=== PATIENT | male | born 1985 | race Caucasian/White ===

== ENCOUNTER 2018-03-06 13:44 | Day surgery (SDC) | payer OTHER ==
[~2018-03-06 13:44] MED LIST: GABA300 PO; HYDACE5 PO; INS70/30I SC; INS70/30PN SC; INSDET100 SC; INSUAS7030 SC; INSULANI SC; LISI20 PO; LISI5 PO; PROM25 PO; SULTRIDS
== END 2018-03-06 22:43 | disposition home or self-care (01) ==
LOC: ATC 13:44
DX: T81.89XA Other complications of procedures, not elsewhere classified, initial encounter (principal); Z98.890 Other specified postprocedural states; L97.512 Non-pressure chronic ulcer of other part of right foot with fat layer exposed; E10.621 Type 1 diabetes mellitus with foot ulcer
CPT/HCPCS: 99214

== ENCOUNTER 2018-03-13 00:30 | Day surgery (SDC) | payer OTHER | END 2018-03-13 14:04 | disposition home or self-care (01) | LOC: ATC 00:30 | DX: T81.89XA Other complications of procedures, not elsewhere classified, initial encounter (principal); E10.621 Type 1 diabetes mellitus with foot ulcer; L97.512 Non-pressure chronic ulcer of other part of right foot with fat layer exposed; I10 Essential (primary) hypertension; E78.00 Pure hypercholesterolemia, unspecified | CPT/HCPCS: 99212 ==

== ENCOUNTER 2018-03-17 00:04 | Day surgery (SDC) | payer OTHER | END 2018-03-17 11:50 | disposition home or self-care (01) | LOC: ATC 00:04 | DX: Z48.00 Encounter for change or removal of nonsurgical wound dressing (principal); E10.621 Type 1 diabetes mellitus with foot ulcer; L97.512 Non-pressure chronic ulcer of other part of right foot with fat layer exposed; T81.89XA Other complications of procedures, not elsewhere classified, initial encounter; Z98.890 Other specified postprocedural states; I10 Essential (primary) hypertension | CPT/HCPCS: 99211 ==

== ENCOUNTER 2018-03-20 00:18 | Day surgery (SDC) | payer OTHER | END 2018-03-20 14:10 | disposition home or self-care (01) | LOC: ATC 00:18 | DX: E10.621 Type 1 diabetes mellitus with foot ulcer (principal); L97.512 Non-pressure chronic ulcer of other part of right foot with fat layer exposed; T81.89XD Other complications of procedures, not elsewhere classified, subsequent encounter | CPT/HCPCS: 99212 ==

== ENCOUNTER 2018-03-23 00:19 | Day surgery (SDC) | payer OTHER | END 2018-03-23 15:03 | disposition home or self-care (01) | LOC: ATC 00:19 | DX: T81.89XA Other complications of procedures, not elsewhere classified, initial encounter (principal); Z98.890 Other specified postprocedural states; E11.621 Type 2 diabetes mellitus with foot ulcer; L97.512 Non-pressure chronic ulcer of other part of right foot with fat layer exposed | CPT/HCPCS: 99211 ==

== ENCOUNTER 2018-03-25 08:08 | Day surgery (SDC) | payer OTHER | END 2018-03-25 15:40 | disposition home or self-care (01) | LOC: ATC 08:08 | DX: T81.89XA Other complications of procedures, not elsewhere classified, initial encounter (principal); E10.621 Type 1 diabetes mellitus with foot ulcer; L97.512 Non-pressure chronic ulcer of other part of right foot with fat layer exposed | CPT/HCPCS: 99211 ==

== ENCOUNTER 2018-03-27 09:12 | Day surgery (SDC) | payer OTHER ==
[2018-03-27] MEDS ORDERED: ASPI81CH PO (11:44)
== END 2018-03-27 10:20 | disposition home or self-care (01) ==
LOC: ATC 09:12
DX: T81.89XA Other complications of procedures, not elsewhere classified, initial encounter (principal); E10.621 Type 1 diabetes mellitus with foot ulcer; L97.512 Non-pressure chronic ulcer of other part of right foot with fat layer exposed; Z98.890 Other specified postprocedural states; E10.40 Type 1 diabetes mellitus with diabetic neuropathy, unspecified; I10 Essential (primary) hypertension; Z79.4 Long term (current) use of insulin; F17.210 Nicotine dependence, cigarettes, uncomplicated
CPT/HCPCS: 99212

== ENCOUNTER 2018-03-30 00:19 | Day surgery (SDC) | payer OTHER ==
[~2018-03-30 00:19] MED LIST changes: +ASPI81CH PO
== END 2018-03-30 22:45 | disposition home or self-care (01) ==
LOC: WOUND 00:19
DX: T81.89XA Other complications of procedures, not elsewhere classified, initial encounter (principal); E10.621 Type 1 diabetes mellitus with foot ulcer; L97.512 Non-pressure chronic ulcer of other part of right foot with fat layer exposed; I10 Essential (primary) hypertension; J44.9 Chronic obstructive pulmonary disease, unspecified; G47.30 Sleep apnea, unspecified
CPT/HCPCS: G0463

== ENCOUNTER 2018-04-01 07:48 | Day surgery (SDC) | payer OTHER | END 2018-04-01 22:47 | disposition home or self-care (01) | LOC: WOUND 07:48 | DX: T81.89XA Other complications of procedures, not elsewhere classified, initial encounter (principal); E10.622 Type 1 diabetes mellitus with other skin ulcer; L97.512 Non-pressure chronic ulcer of other part of right foot with fat layer exposed; L97.812 Non-pressure chronic ulcer of other part of right lower leg with fat layer exposed; I10 Essential (primary) hypertension ==

== ENCOUNTER 2018-04-03 00:18 | Day surgery (SDC) | payer OTHER | END 2018-04-03 22:37 | disposition home or self-care (01) | LOC: WOUND 00:18 | DX: T81.89XA Other complications of procedures, not elsewhere classified, initial encounter (principal); I10 Essential (primary) hypertension; E10.622 Type 1 diabetes mellitus with other skin ulcer; L97.812 Non-pressure chronic ulcer of other part of right lower leg with fat layer exposed ==

== ENCOUNTER 2018-04-06 08:26 | Day surgery (SDC) | payer OTHER | END 2018-04-06 22:50 | disposition home or self-care (01) | LOC: WOUND 08:26 | DX: E11.622 Type 2 diabetes mellitus with other skin ulcer (principal); L97.812 Non-pressure chronic ulcer of other part of right lower leg with fat layer exposed; E11.621 Type 2 diabetes mellitus with foot ulcer; L97.512 Non-pressure chronic ulcer of other part of right foot with fat layer exposed; Z98.890 Other specified postprocedural states; T81.89XA Other complications of procedures, not elsewhere classified, initial encounter; I10 Essential (primary) hypertension; Z79.4 Long term (current) use of insulin ==

== ENCOUNTER 2018-04-08 00:10 | Day surgery (SDC) | payer OTHER | END 2018-04-08 22:43 | disposition home or self-care (01) | LOC: WOUND 00:10 | DX: Z48.01 Encounter for change or removal of surgical wound dressing (principal); L97.812 Non-pressure chronic ulcer of other part of right lower leg with fat layer exposed; L97.512 Non-pressure chronic ulcer of other part of right foot with fat layer exposed; Z98.890 Other specified postprocedural states; I10 Essential (primary) hypertension | CPT/HCPCS: G0463 ==

== ENCOUNTER 2018-05-04 07:53 | Day surgery (SDC) | payer OTHER | END 2018-05-04 23:03 | disposition home or self-care (01) | LOC: WOUND 07:53 | DX: E10.621 Type 1 diabetes mellitus with foot ulcer (principal); L97.512 Non-pressure chronic ulcer of other part of right foot with fat layer exposed; E10.622 Type 1 diabetes mellitus with other skin ulcer; L97.312 Non-pressure chronic ulcer of right ankle with fat layer exposed; I10 Essential (primary) hypertension; E10.65 Type 1 diabetes mellitus with hyperglycemia; Z98.890 Other specified postprocedural states ==

== ENCOUNTER 2018-05-06 00:08 | Day surgery (SDC) | payer OTHER | END 2018-05-06 22:50 | disposition home or self-care (01) | LOC: WOUND 00:08 | DX: L97.812 Non-pressure chronic ulcer of other part of right lower leg with fat layer exposed (principal); L97.512 Non-pressure chronic ulcer of other part of right foot with fat layer exposed; Z98.890 Other specified postprocedural states; I10 Essential (primary) hypertension; E10.621 Type 1 diabetes mellitus with foot ulcer; E10.65 Type 1 diabetes mellitus with hyperglycemia ==

== ENCOUNTER → 2018-06-01 | Outpatient (CLI) | payer OTHER ==
[2018-06-01 13:03] LABS: Bacteria Few /hpf; Squamous Epithelial Cells Rare /hpf (Few); White Blood Cells, Urine 0-2 /hpf (0-5)
[2018-06-01 13:25] LABS: Protein, Urine Random 18.4 mg/dL (0.0-11.9)
== END | disposition home or self-care (01) ==
LOC: LAB 11:30 → LAB SHORT 11:30
PROVIDERS: Internal Medicine
DX: R80.9 Proteinuria, unspecified (principal)
CPT/HCPCS: 81015; 82570; 84156

== ENCOUNTER 2018-06-22 01:37 | Day surgery (SDC) | payer OTHER | END 2018-06-22 22:37 | disposition home or self-care (01) | LOC: WOUND 01:37 | DX: L97.312 Non-pressure chronic ulcer of right ankle with fat layer exposed (principal); Z98.890 Other specified postprocedural states; I10 Essential (primary) hypertension; E10.65 Type 1 diabetes mellitus with hyperglycemia ==

== ENCOUNTER 2018-06-25 00:20 | Day surgery (SDC) | payer OTHER | END 2018-06-25 22:45 | disposition home or self-care (01) | LOC: WOUND 00:20 | DX: L97.812 Non-pressure chronic ulcer of other part of right lower leg with fat layer exposed (principal); Z98.890 Other specified postprocedural states; I10 Essential (primary) hypertension; E10.65 Type 1 diabetes mellitus with hyperglycemia ==

== ENCOUNTER 2018-06-29 00:15 | Day surgery (SDC) | payer OTHER | END 2018-06-29 22:43 | disposition home or self-care (01) | LOC: WOUND 00:15 | DX: L97.812 Non-pressure chronic ulcer of other part of right lower leg with fat layer exposed (principal); E10.65 Type 1 diabetes mellitus with hyperglycemia; I10 Essential (primary) hypertension; Z98.890 Other specified postprocedural states ==

== ENCOUNTER 2018-07-02 13:04 | Day surgery (SDC) | payer OTHER | END 2018-07-02 23:03 | disposition home or self-care (01) | LOC: WOUND 13:04 | DX: L97.812 Non-pressure chronic ulcer of other part of right lower leg with fat layer exposed (principal); I10 Essential (primary) hypertension; E10.65 Type 1 diabetes mellitus with hyperglycemia; Z98.890 Other specified postprocedural states ==

== ENCOUNTER 2018-07-06 08:45 | Day surgery (SDC) | payer OTHER | END 2018-07-06 22:36 | disposition home or self-care (01) | LOC: WOUND 08:45 | DX: L97.812 Non-pressure chronic ulcer of other part of right lower leg with fat layer exposed (principal); I10 Essential (primary) hypertension; E10.65 Type 1 diabetes mellitus with hyperglycemia; Z98.890 Other specified postprocedural states ==

== ENCOUNTER 2018-07-09 13:20 | Day surgery (SDC) | payer OTHER | END 2018-07-09 22:45 | disposition home or self-care (01) | LOC: WOUND 13:20 | DX: L97.812 Non-pressure chronic ulcer of other part of right lower leg with fat layer exposed (principal); I10 Essential (primary) hypertension; E10.65 Type 1 diabetes mellitus with hyperglycemia; Z98.890 Other specified postprocedural states ==

== ENCOUNTER 2018-07-13 08:45 | Day surgery (SDC) | payer OTHER | END 2018-07-13 22:39 | disposition home or self-care (01) | LOC: WOUND 08:45 | DX: L97.812 Non-pressure chronic ulcer of other part of right lower leg with fat layer exposed (principal); Z98.890 Other specified postprocedural states; I10 Essential (primary) hypertension; E10.65 Type 1 diabetes mellitus with hyperglycemia ==

== ENCOUNTER 2018-07-16 13:30 | Day surgery (SDC) | payer OTHER | END 2018-07-16 22:47 | disposition home or self-care (01) | LOC: WOUND 13:30 | DX: L97.812 Non-pressure chronic ulcer of other part of right lower leg with fat layer exposed (principal); I10 Essential (primary) hypertension; E10.65 Type 1 diabetes mellitus with hyperglycemia; Z98.890 Other specified postprocedural states | CPT/HCPCS: G0463 ==

== ENCOUNTER 2018-07-20 08:27 | Day surgery (SDC) | payer OTHER | END 2018-07-20 23:00 | disposition home or self-care (01) | LOC: WOUND 08:27 | DX: L97.812 Non-pressure chronic ulcer of other part of right lower leg with fat layer exposed (principal); I10 Essential (primary) hypertension; E10.65 Type 1 diabetes mellitus with hyperglycemia; Z98.890 Other specified postprocedural states ==

== ENCOUNTER 2018-07-23 00:20 | Day surgery (SDC) | payer OTHER | END 2018-07-23 23:58 | disposition home or self-care (01) | LOC: WOUND 00:20 | PROC: 2W1QX6Z Compression of Right Lower Leg using Pressure Dressing (ICD-10-PCS; principal; 2018-07-23) | DX: E10.622 Type 1 diabetes mellitus with other skin ulcer (principal); L97.319 Non-pressure chronic ulcer of right ankle with unspecified severity; I10 Essential (primary) hypertension; Z98.890 Other specified postprocedural states ==

== ENCOUNTER 2018-07-27 08:35 | Day surgery (SDC) | payer OTHER | END 2018-07-27 22:41 | disposition home or self-care (01) | LOC: WOUND 08:35 | PROC: 2W1LX6Z Compression of Right Lower Extremity using Pressure Dressing (ICD-10-PCS; principal; 2018-07-27) | PROC: 0HBKXZZ Excision of Right Lower Leg Skin, External Approach (ICD-10-PCS; principal; 2018-07-27) | DX: E10.622 Type 1 diabetes mellitus with other skin ulcer (principal); L97.312 Non-pressure chronic ulcer of right ankle with fat layer exposed; I10 Essential (primary) hypertension ==

== ENCOUNTER 2018-07-30 13:30 | Day surgery (SDC) | payer OTHER | END 2018-07-30 22:51 | disposition home or self-care (01) | LOC: WOUND 13:30 | DX: L97.812 Non-pressure chronic ulcer of other part of right lower leg with fat layer exposed (principal); Z98.890 Other specified postprocedural states; I10 Essential (primary) hypertension; E10.65 Type 1 diabetes mellitus with hyperglycemia ==

== ENCOUNTER 2018-08-03 08:45 | Day surgery (SDC) | payer OTHER | END 2018-08-03 22:47 | disposition home or self-care (01) | LOC: WOUND 08:45 | DX: L97.812 Non-pressure chronic ulcer of other part of right lower leg with fat layer exposed (principal); Z98.890 Other specified postprocedural states; I10 Essential (primary) hypertension; E10.65 Type 1 diabetes mellitus with hyperglycemia ==

== ENCOUNTER 2018-08-06 13:20 | Day surgery (SDC) | payer OTHER | END 2018-08-06 23:10 | disposition home or self-care (01) | LOC: WOUND 13:20 | DX: E10.622 Type 1 diabetes mellitus with other skin ulcer (principal); L97.812 Non-pressure chronic ulcer of other part of right lower leg with fat layer exposed; I10 Essential (primary) hypertension; Z98.890 Other specified postprocedural states ==

== ENCOUNTER 2018-08-10 08:20 | Day surgery (SDC) | payer OTHER | END 2018-08-10 22:41 | disposition home or self-care (01) | LOC: WOUND 08:20 | DX: T81.89XA Other complications of procedures, not elsewhere classified, initial encounter (principal); E10.622 Type 1 diabetes mellitus with other skin ulcer; L97.312 Non-pressure chronic ulcer of right ankle with fat layer exposed; I10 Essential (primary) hypertension; E10.65 Type 1 diabetes mellitus with hyperglycemia; B95.62 Methicillin resistant Staphylococcus aureus infection as the cause of diseases classified elsewhere ==

== ENCOUNTER 2018-08-13 13:20 | Day surgery (SDC) | payer OTHER | END 2018-08-13 22:56 | disposition home or self-care (01) | LOC: WOUND 13:20 | PROC: 2W1QX7Z Compression of Right Lower Leg using Intermittent Pressure Device (ICD-10-PCS; principal; 2018-08-13) | DX: E10.622 Type 1 diabetes mellitus with other skin ulcer (principal); L97.812 Non-pressure chronic ulcer of other part of right lower leg with fat layer exposed; I10 Essential (primary) hypertension; Z98.890 Other specified postprocedural states ==

== ENCOUNTER 2018-08-17 08:15 | Day surgery (SDC) | payer OTHER | END 2018-08-17 22:39 | disposition home or self-care (01) | LOC: WOUND 08:15 | DX: T81.89XA Other complications of procedures, not elsewhere classified, initial encounter (principal); E10.622 Type 1 diabetes mellitus with other skin ulcer; L97.312 Non-pressure chronic ulcer of right ankle with fat layer exposed; I10 Essential (primary) hypertension; E10.65 Type 1 diabetes mellitus with hyperglycemia ==

== ENCOUNTER 2018-08-20 00:34 | Day surgery (SDC) | payer OTHER | END 2018-08-20 22:44 | disposition home or self-care (01) | LOC: WOUND 00:34 | DX: L97.812 Non-pressure chronic ulcer of other part of right lower leg with fat layer exposed (principal); Z98.890 Other specified postprocedural states; I10 Essential (primary) hypertension; E10.65 Type 1 diabetes mellitus with hyperglycemia ==

== ENCOUNTER 2018-08-24 00:26 | Day surgery (SDC) | payer OTHER | END 2018-08-24 22:59 | disposition home or self-care (01) | LOC: WOUND 00:26 | DX: T81.89XA Other complications of procedures, not elsewhere classified, initial encounter (principal); E10.622 Type 1 diabetes mellitus with other skin ulcer; L97.312 Non-pressure chronic ulcer of right ankle with fat layer exposed; S91.102A Unspecified open wound of left great toe without damage to nail, initial encounter; S91.205A Unspecified open wound of left lesser toe(s) with damage to nail, initial encounter; Z98.890 Other specified postprocedural states; I10 Essential (primary) hypertension; E10.65 Type 1 diabetes mellitus with hyperglycemia; E10.40 Type 1 diabetes mellitus with diabetic neuropathy, unspecified; Z87.891 Personal history of nicotine dependence | CPT/HCPCS: G0463 ==

== ENCOUNTER 2018-08-27 00:16 | Day surgery (SDC) | payer OTHER ==
[2018-08-27 15:45] LABS: BASOPHILS ABSOLUTE AUTO 0.03 K/mm3 (0.00-0.23); BASOPHILS PERCENT AUTO 1 % (0-2); EOSINOPHILS ABSOLUTE AUTO 0.21 K/mm3 (0.00-0.68); EOSINOPHILS PERCENT AUTO 3 % (0-6); Hematocrit 41.7 % (37.0-53.0); Hemoglobin 13.7 g/dL (13.5-17.5); IMMATURE GRAN ABSOLUTE AUTO 0.03 K/mm3 (0.00-0.10); IMMATURE GRAN PERCENT AUTO 1 % (0-1); LYMPHOCYTES PERCENT AUTO 26 % (21-46); MONOCYTES ABSOLUTE AUTO 0.41 K/mm3 (0.16-1.47); MONOCYTES PERCENT AUTO 6 % (4-13); Mean Corpuscular HGB 30.4 pg (26.0-34.0); Mean Corpuscular HGB Conc 32.9 g/dL (31.5-36.5); Mean Corpuscular Volume 93 fL (80-100); Mean Platelet Volume 9.9 fL (9.1-12.4); NEUTROPHILS ABSOLUTE AUTO 4.05 K/mm3 (1.96-9.15); NEUTROPHILS PERCENT AUTO 63 % (41-73); Platelet Count 349 K/mm3 (150-400); RDW Standard Deviation 41.5 fL (35.1-46.3); White Blood Cell Count 6.43 K/mm3 (4.00-11.30)
== END 2018-08-27 22:37 | disposition home or self-care (01) ==
LOC: WOUND 00:16
PROVIDERS: Nurse Practitioner Family
DX: L97.812 Non-pressure chronic ulcer of other part of right lower leg with fat layer exposed (principal); Z98.890 Other specified postprocedural states; R23.4 Changes in skin texture; E10.65 Type 1 diabetes mellitus with hyperglycemia; I10 Essential (primary) hypertension; Z79.01 Long term (current) use of anticoagulants
CPT/HCPCS: 36415; 83036; 85025

== ENCOUNTER 2018-09-03 13:05 | Day surgery (SDC) | payer OTHER | END 2018-09-04 13:11 | disposition home or self-care (01) | LOC: WOUND 13:05 | DX: L97.812 Non-pressure chronic ulcer of other part of right lower leg with fat layer exposed (principal); Z98.890 Other specified postprocedural states; I10 Essential (primary) hypertension; E10.65 Type 1 diabetes mellitus with hyperglycemia | CPT/HCPCS: 87070; 87147; 87205 ==

== ENCOUNTER 2018-09-14 00:25 | Day surgery (SDC) | payer OTHER | END 2018-09-14 22:50 | disposition home or self-care (01) | LOC: WOUND 00:25 | DX: L97.812 Non-pressure chronic ulcer of other part of right lower leg with fat layer exposed (principal); E10.65 Type 1 diabetes mellitus with hyperglycemia; I10 Essential (primary) hypertension; Z98.890 Other specified postprocedural states ==

== ENCOUNTER 2018-09-21 08:09 | Day surgery (SDC) | payer OTHER | END 2018-09-21 22:40 | disposition home or self-care (01) | LOC: WOUND 08:09 | DX: T81.89XA Other complications of procedures, not elsewhere classified, initial encounter (principal); E10.622 Type 1 diabetes mellitus with other skin ulcer; L97.812 Non-pressure chronic ulcer of other part of right lower leg with fat layer exposed; L97.522 Non-pressure chronic ulcer of other part of left foot with fat layer exposed; E10.40 Type 1 diabetes mellitus with diabetic neuropathy, unspecified; I10 Essential (primary) hypertension; Z98.890 Other specified postprocedural states ==

== ENCOUNTER 2018-09-28 08:45 | Day surgery (SDC) | payer OTHER | END 2018-09-28 22:47 | disposition home or self-care (01) | LOC: WOUND 08:45 | DX: E11.621 Type 2 diabetes mellitus with foot ulcer (principal); E11.622 Type 2 diabetes mellitus with other skin ulcer; L97.312 Non-pressure chronic ulcer of right ankle with fat layer exposed; L97.522 Non-pressure chronic ulcer of other part of left foot with fat layer exposed; I10 Essential (primary) hypertension; Z98.890 Other specified postprocedural states ==

== ENCOUNTER 2018-10-05 00:10 | Day surgery (SDC) | payer OTHER | END 2018-10-05 23:05 | disposition home or self-care (01) | LOC: WOUND 00:10 | DX: E10.621 Type 1 diabetes mellitus with foot ulcer (principal); I87.2 Venous insufficiency (chronic) (peripheral); L97.312 Non-pressure chronic ulcer of right ankle with fat layer exposed; L97.522 Non-pressure chronic ulcer of other part of left foot with fat layer exposed; E10.40 Type 1 diabetes mellitus with diabetic neuropathy, unspecified; I10 Essential (primary) hypertension; Z98.890 Other specified postprocedural states ==

== ENCOUNTER 2018-10-12 00:16 | Day surgery (SDC) | payer OTHER | END 2018-10-12 22:45 | disposition home or self-care (01) | LOC: WOUND 00:16 | DX: E10.622 Type 1 diabetes mellitus with other skin ulcer (principal); L97.812 Non-pressure chronic ulcer of other part of right lower leg with fat layer exposed; L97.522 Non-pressure chronic ulcer of other part of left foot with fat layer exposed; E10.40 Type 1 diabetes mellitus with diabetic neuropathy, unspecified ==

== ENCOUNTER 2018-10-19 08:47 | Day surgery (SDC) | payer OTHER | END 2018-10-19 22:45 | disposition home or self-care (01) | LOC: WOUND 08:47 | DX: T81.89XA Other complications of procedures, not elsewhere classified, initial encounter (principal); I87.2 Venous insufficiency (chronic) (peripheral); E10.622 Type 1 diabetes mellitus with other skin ulcer; L97.812 Non-pressure chronic ulcer of other part of right lower leg with fat layer exposed; L97.822 Non-pressure chronic ulcer of other part of left lower leg with fat layer exposed; E10.621 Type 1 diabetes mellitus with foot ulcer; L97.522 Non-pressure chronic ulcer of other part of left foot with fat layer exposed; I10 Essential (primary) hypertension; E10.65 Type 1 diabetes mellitus with hyperglycemia; E10.10 Type 1 diabetes mellitus with ketoacidosis without coma | CPT/HCPCS: G0463 ==

== ENCOUNTER 2018-10-26 08:44 | Day surgery (SDC) | payer OTHER | END 2018-10-26 22:47 | disposition home or self-care (01) | LOC: WOUND 08:44 | DX: T87.89 Other complications of amputation stump (principal); I87.2 Venous insufficiency (chronic) (peripheral); E10.622 Type 1 diabetes mellitus with other skin ulcer; L97.812 Non-pressure chronic ulcer of other part of right lower leg with fat layer exposed; L97.822 Non-pressure chronic ulcer of other part of left lower leg with fat layer exposed; E10.621 Type 1 diabetes mellitus with foot ulcer; L97.522 Non-pressure chronic ulcer of other part of left foot with fat layer exposed; E10.65 Type 1 diabetes mellitus with hyperglycemia ==

== ENCOUNTER 2018-11-02 08:44 | Day surgery (SDC) | payer OTHER | END 2018-11-02 23:03 | disposition home or self-care (01) | LOC: WOUND 08:44 | DX: E10.622 Type 1 diabetes mellitus with other skin ulcer (principal); L97.311 Non-pressure chronic ulcer of right ankle limited to breakdown of skin; L97.822 Non-pressure chronic ulcer of other part of left lower leg with fat layer exposed; L97.812 Non-pressure chronic ulcer of other part of right lower leg with fat layer exposed; I87.2 Venous insufficiency (chronic) (peripheral); E10.65 Type 1 diabetes mellitus with hyperglycemia; E10.42 Type 1 diabetes mellitus with diabetic polyneuropathy; I10 Essential (primary) hypertension ==

== ENCOUNTER 2018-11-09 08:38 | Day surgery (SDC) | payer OTHER | END 2018-11-09 22:41 | disposition home or self-care (01) | LOC: WOUND 08:38 | DX: T81.89XA Other complications of procedures, not elsewhere classified, initial encounter (principal); E10.622 Type 1 diabetes mellitus with other skin ulcer; L97.812 Non-pressure chronic ulcer of other part of right lower leg with fat layer exposed; L97.822 Non-pressure chronic ulcer of other part of left lower leg with fat layer exposed; I87.2 Venous insufficiency (chronic) (peripheral); I10 Essential (primary) hypertension; E10.65 Type 1 diabetes mellitus with hyperglycemia; E10.40 Type 1 diabetes mellitus with diabetic neuropathy, unspecified; Z98.890 Other specified postprocedural states | CPT/HCPCS: G0463 ==

== ENCOUNTER 2018-11-16 00:13 | Day surgery (SDC) | payer BC, OTHER | END 2018-11-16 22:46 | disposition home or self-care (01) | LOC: WOUND 00:13 | DX: E10.621 Type 1 diabetes mellitus with foot ulcer (principal); L97.312 Non-pressure chronic ulcer of right ankle with fat layer exposed; L97.822 Non-pressure chronic ulcer of other part of left lower leg with fat layer exposed; E10.65 Type 1 diabetes mellitus with hyperglycemia; E10.40 Type 1 diabetes mellitus with diabetic neuropathy, unspecified; I87.2 Venous insufficiency (chronic) (peripheral); I10 Essential (primary) hypertension; Z98.890 Other specified postprocedural states | CPT/HCPCS: G0463 ==

== ENCOUNTER 2018-11-23 08:30 | Day surgery (SDC) | payer BC, OTHER | END 2018-11-23 22:37 | disposition home or self-care (01) | LOC: WOUND 08:30 | DX: E10.622 Type 1 diabetes mellitus with other skin ulcer (principal); L97.312 Non-pressure chronic ulcer of right ankle with fat layer exposed; L97.822 Non-pressure chronic ulcer of other part of left lower leg with fat layer exposed; L97.812 Non-pressure chronic ulcer of other part of right lower leg with fat layer exposed; E10.65 Type 1 diabetes mellitus with hyperglycemia; E10.40 Type 1 diabetes mellitus with diabetic neuropathy, unspecified; I10 Essential (primary) hypertension; I87.2 Venous insufficiency (chronic) (peripheral); Z98.890 Other specified postprocedural states | CPT/HCPCS: G0463 ==

== ENCOUNTER 2018-12-14 08:38 | Day surgery (SDC) | payer BC | END 2018-12-14 22:40 | disposition home or self-care (01) | LOC: WOUND 08:38 | DX: T81.89XA Other complications of procedures, not elsewhere classified, initial encounter (principal); E10.622 Type 1 diabetes mellitus with other skin ulcer; L97.812 Non-pressure chronic ulcer of other part of right lower leg with fat layer exposed; L97.822 Non-pressure chronic ulcer of other part of left lower leg with fat layer exposed; E10.65 Type 1 diabetes mellitus with hyperglycemia; E10.40 Type 1 diabetes mellitus with diabetic neuropathy, unspecified; I87.2 Venous insufficiency (chronic) (peripheral); I10 Essential (primary) hypertension; Z98.890 Other specified postprocedural states | CPT/HCPCS: G0463 ==

== ENCOUNTER → 2019-01-25 | Outpatient (CLI) | payer BC ==
[2019-01-25 12:35] LABS: Source, Urine Clean Catch
[2019-01-25 13:00] LABS: Bilirubin, Urine Neg (Neg); Blood, Urine 3+ (Neg); Glucose Qualitative, Urine 4+ (Neg); Ketones, Urine Neg (Neg); Leukocyte Esterase, Urine Neg (Neg); Nitrite, Urine Neg (Neg); Protein, Urine 2+ (Neg); Specific Gravity, Urine 1.015 (1.003-1.022); Urobilinogen, Urine NORM (Normal)
[2019-01-25 13:42] LABS: Appearance, Urine Clear (Clear); Color, Urine Yellow (P-Yellow)
[2019-01-25 13:43] LABS: White Blood Cells, Urine 0-2 /hpf (0-5)
[2019-01-25 13:44] LABS: Squamous Epithelial Cells Rare /hpf (Few)
[2019-01-25 13:45] LABS: Bacteria Rare /hpf
== END | disposition home or self-care (01) ==
LOC: LAB SHORT 12:31 → LAB 12:31
PROVIDERS: Internal Medicine
DX: R80.9 Proteinuria, unspecified (principal)
CPT/HCPCS: 81001

== ENCOUNTER → 2019-09-19 | Outpatient (CLI) | payer BC | LOC: LAB SHORT 15:27 → LAB EV 15:27 | DX: L02.211 Cutaneous abscess of abdominal wall (principal) | CPT/HCPCS: 87070; 87075; 87077; 87147; 87186; 87205 ==

== ENCOUNTER 2020-01-02 20:41 | Observation (INO) | payer BC ==
[~2020-01-02] VITALS: Ht 188 cm; Wt 100.0 kg
[2020-01-02 21:59] LABS: BASOPHILS ABSOLUTE AUTO 0.04 K/mm3 (0.00-0.23); BASOPHILS PERCENT AUTO 0 % (0-2); EOSINOPHILS ABSOLUTE AUTO 0.26 K/mm3 (0.00-0.68); EOSINOPHILS PERCENT AUTO 2 % (0-6); Hematocrit 39.8 % (37.0-53.0); Hemoglobin 13.1 g/dL (13.5-17.5); IMMATURE GRAN ABSOLUTE AUTO 0.04 K/mm3 (0.00-0.10); IMMATURE GRAN PERCENT AUTO 0 % (0-1); LYMPHOCYTES ABSOLUTE AUTO 0.76 K/mm3 (0.84-5.20); LYMPHOCYTES PERCENT AUTO 6 % (21-46); MONOCYTES ABSOLUTE AUTO 0.67 K/mm3 (0.16-1.47); MONOCYTES PERCENT AUTO 6 % (4-13); Mean Corpuscular HGB 29.9 pg (26.0-34.0); Mean Corpuscular HGB Conc 32.9 g/dL (31.5-36.5); Mean Corpuscular Volume 91 fL (80-100); Mean Platelet Volume 10.2 fL (9.1-12.4); NEUTROPHILS ABSOLUTE AUTO 10.06 K/mm3 (1.96-9.15); NEUTROPHILS PERCENT AUTO 85 % (41-73); Platelet Count 304 K/mm3 (150-400); RDW Coefficient Variation 12.2 % (11.7-14.2); RDW Standard Deviation 41.1 fL (35.1-46.3); Red Blood Cell Count 4.38 M/mm3 (4.30-5.90); White Blood Cell Count 11.83 K/mm3 (4.00-11.30)
[2020-01-02 22:21] LABS: Alanine Aminotransfer (ALT/SGP 24 U/L (12-78); Albumin, Blood 3.3 g/dL (3.4-5.0); Albumin/Globulin Ratio 0.7 (0.8-1.8); Alk Phos 98 U/L (50-136); Anion Gap 6 mmol/L (6-16); Aspartate Aminotrans (AST/SGOT 20 U/L (12-37); Bilirubin, Total 0.4 mg/dL (0.1-1.0); Blood Urea Nitrogen 19 mg/dL (8-24); Bun/Creatinine Ratio 19.5 (12.0-20.0); CO2, Blood 28 mmol/L (21-32); Calcium, Blood 8.3 mg/dL (8.5-10.1); Chloride, Blood 101 mmol/L (98-108); Creatinine, Blood 0.98 mg/dL (0.60-1.20); Glomerular Filtration Rate >60 (60-); Glucose, Blood 334 mg/dL (70-99); Potassium, Blood 4.2 mmol/L (3.5-5.5); Sodium, Blood 135 mmol/L (136-145); Total Protein, Blood 8.3 g/dL (6.4-8.2)
[2020-01-02 22:27] LABS: Beta-hydroxybutyrate 1.1 mg/dL (0.2-2.8)
[2020-01-02 23:30] LABS: CPK Creatine Kinase 308 U/L (39-308)
--- NOTE | 2020-01-03 00:15 | NUR ---
RECEIVED REPORT FROM KAELYN ED RN. PT TRANSPORTED TO MEDICAL FLOOR VIA GURNEY, SELF-TRANSFERRED TO BED. NO S/S ACUTE DISTRESS NOTED AT THIS TIME, RESPS EVEN AND UNLABORED. ORIENTED TO ROOM AND UNIT. PT SITUATED AND MADE COMFORTABLE. DENIES NEEDS AT THIS TIME. CALL LIGHT, POSSESSIONS IN REACH, BED IN LOWEST POSITION. WILL CONTINUE TO MONITOR.
[2020-01-03] MEDS ORDERED: HUMALOG100 UNIT/1 SC (00:28)
--- NOTE | 2020-01-03 05:25 | NUR ---
SHIFT SUMMARY PT HAS HAD AN UNEVENTFUL NIGHT SINCE HIS ARRIVAL TO MEDICAL FLOOR. APPEARED TO SLEEP WELL. PT HAS OWN INSULIN PUMP AND CONTINUOUS BLOOD GLUCOSE MONITOR. DENIES S/S HYPOGLYCEMIA. NO ACUTE EVENTS NOTED. U/A PENDING AT THIS TIME, REMINDED PT TO VOID IN URINAL. DENIES NEEDS AT THIS TIME. CALL LIGHT, POSSESSIONS IN REACH. WILL CONTINUE TO MONITOR UNTIL DAY RN ASSUMES CARE.
[2020-01-03 05:49] LABS: BASOPHILS ABSOLUTE AUTO 0.03 K/mm3 (0.00-0.23); BASOPHILS PERCENT AUTO 0 % (0-2); EOSINOPHILS ABSOLUTE AUTO 0.08 K/mm3 (0.00-0.68); EOSINOPHILS PERCENT AUTO 1 % (0-6); Hematocrit 37.4 % (37.0-53.0); Hemoglobin 12.4 g/dL (13.5-17.5); IMMATURE GRAN ABSOLUTE AUTO 0.02 K/mm3 (0.00-0.10); IMMATURE GRAN PERCENT AUTO 0 % (0-1); LYMPHOCYTES ABSOLUTE AUTO 0.89 K/mm3 (0.84-5.20); LYMPHOCYTES PERCENT AUTO 10 % (21-46); MONOCYTES ABSOLUTE AUTO 0.51 K/mm3 (0.16-1.47); MONOCYTES PERCENT AUTO 6 % (4-13); Mean Corpuscular HGB Conc 33.2 g/dL (31.5-36.5); Mean Corpuscular Volume 90 fL (80-100); Mean Platelet Volume 10.2 fL (9.1-12.4); NEUTROPHILS ABSOLUTE AUTO 7.19 K/mm3 (1.96-9.15); NEUTROPHILS PERCENT AUTO 83 % (41-73); Platelet Count 286 K/mm3 (150-400); RDW Coefficient Variation 12.2 % (11.7-14.2); RDW Standard Deviation 40.3 fL (35.1-46.3); Red Blood Cell Count 4.14 M/mm3 (4.30-5.90); White Blood Cell Count 8.72 K/mm3 (4.00-11.30)
[2020-01-03 06:14] LABS: Alanine Aminotransfer (ALT/SGP 19 U/L (12-78); Albumin, Blood 2.8 g/dL (3.4-5.0); Albumin/Globulin Ratio 0.6 (0.8-1.8); Alk Phos 87 U/L (50-136); Anion Gap 5 mmol/L (6-16); Aspartate Aminotrans (AST/SGOT 12 U/L (12-37); Bilirubin, Total 0.4 mg/dL (0.1-1.0); Blood Urea Nitrogen 16 mg/dL (8-24); Bun/Creatinine Ratio 19.1 (12.0-20.0); CO2, Blood 26 mmol/L (21-32); Calcium, Blood 8.1 mg/dL (8.5-10.1); Chloride, Blood 107 mmol/L (98-108); Creatinine, Blood 0.84 mg/dL (0.60-1.20); Globulin, Blood 4.5 g/dL (2.2-4.0); Glomerular Filtration Rate >60 (60-); Glucose, Blood 217 mg/dL (70-99); Potassium, Blood 3.9 mmol/L (3.5-5.5); Sodium, Blood 138 mmol/L (136-145); Total Protein, Blood 7.3 g/dL (6.4-8.2)
[2020-01-03 08:18] LABS: Source, Urine Clean Catch
[2020-01-03 08:21] LABS: Appearance, Urine Clear (Clear); Bilirubin, Urine Neg (Neg); Blood, Urine 2+ (Neg); Color, Urine Yellow (P-Yellow); Glucose Qualitative, Urine 3+ (Neg); Ketones, Urine Neg (Neg); Leukocyte Esterase, Urine Neg (Neg); Nitrite, Urine Neg (Neg); Protein, Urine 3+ (Neg); Urobilinogen, Urine NORM (Normal)
[2020-01-03 08:30] LABS: Bacteria Rare /hpf; Red Blood Cells, Urine 0-2 /hpf (0-2); Squamous Epithelial Cells Rare /hpf (Few); White Blood Cells, Urine 0-2 /hpf (0-5)
[2020-01-03 08:37] LABS: U Amphetamine Screen Not Detected; U Barbituate Screen Not Detected; U Benzodiazapine Screen Not Detected; U Buprenorphine Screen Not Detected; U Cannabinoids Screen Not Detected; U Cocaine Screen Not Detected; U Methadone Screen Not Detected; U Methamphetamine Screen Not Detected; U Opiates Screen Not Detected; U Oxycodone Screen Not Detected; U Phencyclidine Screen Not Detected; U Propoxyphene Screen Not Detected
[2020-01-03] MEDS ORDERED: Florastor250 MG PO (12:32)
[2020-01-03] MEDS ORDERED: ACET325 PO (12:32)
[2020-01-03] MEDS ORDERED: CLIN300 PO (12:33)
--- NOTE | 2020-01-03 13:19 | NUR ---
PT DISCHARGED FROM THE UNIT, IV REMOVED. MEDICATIONS FAXED TO [facility], [facility] APTS SCHEDULED AND REVIEWED WITH PT. LEFT THE UNIT VIA WHEELCHAIR.
[2020-01-18] MEDS ORDERED: LISI20 PO (20:27)
[2020-01-18] MEDS ORDERED: Bactrim Ds Tab1 EACH PO (23:57)
== END 2020-01-03 12:59 | disposition home or self-care (01) ==
LOC: ER 20:41 → MEDS 20:42
PROVIDERS: Emergency Medicine; ADMIT Internal Medicine
DX: A41.02 Sepsis due to Methicillin resistant Staphylococcus aureus (principal); L03.115 Cellulitis of right lower limb; I87.2 Venous insufficiency (chronic) (peripheral); I10 Essential (primary) hypertension; R00.0 Tachycardia, unspecified; F17.210 Nicotine dependence, cigarettes, uncomplicated; L81.9 Disorder of pigmentation, unspecified; Z79.899 Other long term (current) drug therapy; Z88.6 Allergy status to analgesic agent; Z88.1 Allergy status to other antibiotic agents; E10.65 Type 1 diabetes mellitus with hyperglycemia; Z79.82 Long term (current) use of aspirin
CPT/HCPCS: 36415; 71045; 80053; 81001; 82010; 82550; 82947; 83036; 83605; 85025; 86140; 87040; 93970; 96361; 96365; 96367; 99285-25; A9270; A9270-GY; G0378; J0690; J1650; J7030; J7120

== ENCOUNTER 2020-01-11 09:45 | Day surgery (SDC) | payer BC ==
[~2020-01-11 09:45] MED LIST changes: +ACET325 PO; +CLIN300 PO; +Florastor250 MG PO; +HUMALOG100 UNIT/1 SC
[2020-01-12 13:04] LABS: Performing Lab SYMBIODX; Test Name TISSUE BIOPSY
[2020-01-18] MEDS ORDERED: LISI20 PO (20:27)
[2020-01-18] MEDS ORDERED: Bactrim Ds Tab1 EACH PO (23:57)
[2020-01-19 10:19] LABS: Result SEE SEPERATE REPORT
== END 2020-01-11 22:38 | disposition home or self-care (01) ==
LOC: US 09:45
PROVIDERS: Pathology Clinical Pathology/Laboratory Medicine
DX: I89.8 Other specified noninfective disorders of lymphatic vessels and lymph nodes (principal)
CPT/HCPCS: 38505; 76942; 88305; 88321

== ENCOUNTER 2020-08-21 17:05 | Inpatient (IN) | payer BC ==
[~2020-08-21] VITALS: Ht 188 cm; Wt 99.0 kg
[~2020-08-21 17:05] MED LIST changes: +Bactrim Ds Tab1 EACH PO
--- NOTE | 2020-08-21 18:57 | NUR ---
PT WAS BROUGHT IN A DIRECT ADMIT AND WAS SETTLED INTO ROOM WITH CALL LIGHT AVAIBLE. AOX4 NO DISTRESS NOTED. WILL CONTINUE TO MONITOR.
--- NOTE | 2020-08-21 20:00 | NUR ---
ASSUMPTION OF CARE. PATIENT WAS A DIRECT ADMIT. IV WAS STARTED BY ASSISTANT GOLF COACHBOB LICONA. IV ANTIBOTIC HUNG. MEDS ADMINISTERED. PATIENT IS A PRETTY HEALTHY 35 YEAR OLD, EXCEPT FOR HIS DM TYPE 1. HE HAS INSULIN PUMP THAT HE REGULATES HIS INSULIN WITH. KNOWS TO TURN OFF AT MIDNIGHT WHEN HE GOES NPO. BILATERAL CALFS HAVE HEMOSTAINING. TOES ARE DRY AND SOME ARE CRACKING. LEFT 4TH TOE WITH ULCERS TO BOTH SIDE OF THE TOE. HAD CAMERA IN ROOM BUT IT WAS . CLEANSED AND APPLIED FOAM DRESSING AND TAPE TO WOUND. DENIES ANY OTHER ISSUES OR PAIN. CALL LIGHT IS IN REACH.
--- NOTE | 2020-08-22 05:03 | NUR ---
SHIFT SUMMARY: AOX3, PLEASANT AND COOPERATIVE. INDEPENDENT IN THE ROOM. VS WNL, AFEBRILE, NO PAIN. WOUND IS ON THE LEFT 4TH TOE THAT IS ON BOTH SIDES. SMALL BUT DRAINING BLOODY DRAINAGE. NUMBNESS TO BOTH LEGS, SOME HEMO-STAINING TO BLE. INSULIN PUMP TURNED OFF AT MIDNIGHT, NPO. PATIENT IS VERY UNDERSTANDING OF WHAT IS GOING ON. UNABLE TO CALL IN COSMETICS SUPERVISOR CONSULT THERE IS NO ON-CALL COSMETICS SUPERVISOR FOR A WEEK. WILL PASS ONTO DAY SHIFT. NEW IV PLACED IN LEFT FA. ABLE TO INFUSE ANTIBOTICS WELL. WILL REPORT TO DAY SHIFT. CALL LIGHT IS IN REACH.
[2020-08-22 05:10] LABS: BASOPHILS ABSOLUTE AUTO 0.01 K/mm3 (0.00-0.23); BASOPHILS PERCENT AUTO 0 % (0-2); EOSINOPHILS ABSOLUTE AUTO 0.11 K/mm3 (0.00-0.68); EOSINOPHILS PERCENT AUTO 3 % (0-6); Hematocrit 38.8 % (37.0-53.0); Hemoglobin 13.1 g/dL (13.5-17.5); IMMATURE GRAN ABSOLUTE AUTO 0.01 K/mm3 (0.00-0.10); IMMATURE GRAN PERCENT AUTO 0 % (0-1); LYMPHOCYTES ABSOLUTE AUTO 1.49 K/mm3 (0.84-5.20); LYMPHOCYTES PERCENT AUTO 42 % (21-46); MONOCYTES PERCENT AUTO 9 % (4-13); Mean Corpuscular HGB 29.6 pg (26.0-34.0); Mean Corpuscular HGB Conc 33.8 g/dL (31.5-36.5); Mean Corpuscular Volume 88 fL (80-100); Mean Platelet Volume 9.7 fL (9.1-12.4); NEUTROPHILS PERCENT AUTO 46 % (41-73); Platelet Count 262 K/mm3 (150-400); RDW Coefficient Variation 11.8 % (11.7-14.2); Red Blood Cell Count 4.43 M/mm3 (4.30-5.90); White Blood Cell Count 3.52 K/mm3 (4.00-11.30)
[2020-08-22 05:45] LABS: Alanine Aminotransfer (ALT/SGP 17 U/L (12-78); Albumin, Blood 2.4 g/dL (3.4-5.0); Albumin/Globulin Ratio 0.5 (0.8-1.8); Alk Phos 93 U/L (50-136); Anion Gap 7 mmol/L (6-16); Aspartate Aminotrans (AST/SGOT 13 U/L (12-37); Bilirubin, Total 0.4 mg/dL (0.1-1.0); Blood Urea Nitrogen 14 mg/dL (8-24); Bun/Creatinine Ratio 17.8 (12.0-20.0); CO2, Blood 26 mmol/L (21-32); Calcium, Blood 8.2 mg/dL (8.5-10.1); Chloride, Blood 108 mmol/L (98-108); Creatinine, Blood 0.79 mg/dL (0.60-1.20); Globulin, Blood 4.8 g/dL (2.2-4.0); Glomerular Filtration Rate >60 (60-); Glucose, Blood 96 mg/dL (70-99); Potassium, Blood 3.5 mmol/L (3.5-5.5); Sodium, Blood 141 mmol/L (136-145); Total Protein, Blood 7.2 g/dL (6.4-8.2)
--- NOTE | 2020-08-22 07:32 | NUR ---
LEFT MESSAGE FOR PATIENT DIRECT ADMIT YESTERDAY AND NPO AFTER MIDNITE FOR PODIATRY SURGERY TODAY. NO PODIATRY ON FOR ONE WEEK. AWAITING ORDERS
--- NOTE | 2020-08-22 10:06 | NUR ---
PER OK TO EAT AND CAN USE [facility] INSULIN PUMP. UNABLE TO TELL WHICH KIND OF INSULIN PATIENT IS USING. STS SHORT ACTING AND PUMP GOOD FOR FEW DAYS.
--- NOTE | 2020-08-22 16:41 | NUR ---
ALERT. ORIENTED. PATIENT UPDATED OFTEN ON PLAN. NO PODIATRY GENERAL OPERATOR FOR ONE WEEK. MD TO TALK TO ABOUT MEDS. DRESSINGS TO TOE CHANGED WITH PIC TAKEN. PER PATIENT CAN USE HIS INSULIN PUMP. HAS DENIED PAIN. INDEPENDENT IN ROOM. [facility]
[2020-08-23 04:59] LABS: BASOPHILS ABSOLUTE AUTO 0.01 K/mm3 (0.00-0.23); BASOPHILS PERCENT AUTO 0 % (0-2); EOSINOPHILS ABSOLUTE AUTO 0.11 K/mm3 (0.00-0.68); EOSINOPHILS PERCENT AUTO 3 % (0-6); Hematocrit 40.5 % (37.0-53.0); Hemoglobin 13.6 g/dL (13.5-17.5); IMMATURE GRAN ABSOLUTE AUTO 0.02 K/mm3 (0.00-0.10); IMMATURE GRAN PERCENT AUTO 1 % (0-1); LYMPHOCYTES ABSOLUTE AUTO 1.31 K/mm3 (0.84-5.20); LYMPHOCYTES PERCENT AUTO 32 % (21-46); MONOCYTES ABSOLUTE AUTO 0.34 K/mm3 (0.16-1.47); MONOCYTES PERCENT AUTO 8 % (4-13); Mean Corpuscular HGB 29.4 pg (26.0-34.0); Mean Corpuscular HGB Conc 33.6 g/dL (31.5-36.5); Mean Corpuscular Volume 88 fL (80-100); Mean Platelet Volume 9.6 fL (9.1-12.4); NEUTROPHILS ABSOLUTE AUTO 2.33 K/mm3 (1.96-9.15); NEUTROPHILS PERCENT AUTO 57 % (41-73); Platelet Count 268 K/mm3 (150-400); RDW Coefficient Variation 11.8 % (11.7-14.2); RDW Standard Deviation 37.8 fL (35.1-46.3); Red Blood Cell Count 4.63 M/mm3 (4.30-5.90); White Blood Cell Count 4.12 K/mm3 (4.00-11.30)
[2020-08-23 05:17] LABS: Alanine Aminotransfer (ALT/SGP 18 U/L (12-78); Albumin, Blood 2.3 g/dL (3.4-5.0); Albumin/Globulin Ratio 0.5 (0.8-1.8); Alk Phos 90 U/L (50-136); Anion Gap 4 mmol/L (6-16); Aspartate Aminotrans (AST/SGOT 14 U/L (12-37); Bilirubin, Total 0.2 mg/dL (0.1-1.0); Blood Urea Nitrogen 17 mg/dL (8-24); CO2, Blood 28 mmol/L (21-32); Calcium, Blood 8.1 mg/dL (8.5-10.1); Chloride, Blood 105 mmol/L (98-108); Globulin, Blood 4.9 g/dL (2.2-4.0); Glomerular Filtration Rate >60 (60-); Glucose, Blood 198 mg/dL (70-99); Sodium, Blood 137 mmol/L (136-145); Total Protein, Blood 7.2 g/dL (6.4-8.2)
--- NOTE | 2020-08-23 05:51 | NUR ---
SHIFT SUMMARY ADMITTED FOR OSTEOMYELITIS OF RIGHT FOOT TOES. FULL CODE. DROPLET/CONTACT PRECAUTIONS: COVID POSITIVE & MRSA IN WOUND. PLAN IS FOR AN MRI TO BE PERFORMED. PODIATRY IS UNABLE TO CONSULT ON THIS CASE THEY ARE OFF FOR A WEEK. PT HAS AN INSULIN PUMP. HE ALSO HAS A DEXCON IN LEFT ARM. HE IS DM1. HE IS A&O X4, HE IS INDEPENDENT.
[2020-08-23] MEDS ORDERED: ACET325 PO (15:39)
[2020-08-23] MEDS ORDERED: AMLO5 PO (15:39)
[2020-08-23] MEDS ORDERED: VISBIOME 112.51 EACH PO (15:41)
[2020-08-23] MEDS ORDERED: SULTRISS PO (15:41)
[2020-08-23] MEDS ORDERED: AMOCLA875 PO (15:41)
--- NOTE | 2020-08-23 16:27 | NUR ---
DISCHARGE SUMMARY PT DISCHARGED HOME. PT EDUCATED ON ALL DISCHARGE INSTRUCTIONS, ALL QUESTIONS ANSWERED. PT AGREES TO FOLLOW UP WITH [facility] FOR TELEHEALTH APPOINTMENT AND 2 WEEK QUARENTINE ORDERED. IV DC'D AND BELONGINGS RETURNED. PT LEFT ROOM VIA WHEELCHAIR WITH MAIL PROCESSING CLERK ESCORT AT [id number]. PT EDUCATED ABOUT COVID 19 WELL.
--- NOTE | 2020-08-23 18:16 | NUR ---
ADMIT: 08/21/20 DISCHARGE: 08/23/20 DX:Osteomyelitis/cellulitis right foot in a patient with COVID-19 CC: cpeabody MATT CALL: Call Kirill at home for matt. Telehealth visit in [address] Gregory. RESIDENCE: Home with spouse CAREGIVER: Lissette Aragon, Spouse / Partner, Analisa Grigsby, Family Member, DX: DM-type 1, COVID19, HTN, Cellulitis of lower leg, see list DME: post-op shoe CCM: none HOME HEALTH: not home bound. SUMMARY: Admit 08/21/20 Discharge 08/23/20 s/w Kirill by telephone due to Covid 19 status. Home with , can stop at pharmacy if needed. Does not need home health services or any dme. He is mobile in and out of the home. Follow up [facility] 1 week. Discussed [facility] to call or Friday. Left my Matt letter for the nurse to put in discharge packet. Let patient know I would leave him this letter. Needs to quarrentine 14 days from date of positive test per Dr Gregory. cp Impression: 1. Diabetic foot ulcer right lower extremity involving the right great toe and fourth toe. 2. Cellulitis and evidence of osteomyelitis multiple toes as noted above 3. Wound culture positive for methicillin-resistant staph aureus. Sensitive to Bactrim and doxycycline 4. Report of vancomycin allergy, reaction unknown 5. Type 1 diabetes with historically poor control, peripheral neuropathy and nephropathy. Treated with an insulin pump and followed by Dr. Siddiqi, endocrinology 6. Hypertension 7. COVID-19 POSITIVE STATUS: with COVID-19 and patient tested positive with rapid antigen test for COVID-19 08/21/2020, few symptoms besides fever related to this diagnosis. 8. History of peripheral vascular disease status post vascular intervention May 2020 with good result and preserved arterial flow based on arterial study 08/18/2020.
== END 2020-08-23 16:21 | disposition home or self-care (01) | DRG 637 ==
LOC: MEDS 17:05
PROVIDERS: Hospitalist; ADMIT Family Medicine
DX: E10.69 Type 1 diabetes mellitus with other specified complication (principal); U07.1 COVID-19; M86.171 Other acute osteomyelitis, right ankle and foot; E10.628 Type 1 diabetes mellitus with other skin complications; E10.51 Type 1 diabetes mellitus with diabetic peripheral angiopathy without gangrene; L03.031 Cellulitis of right toe
CPT/HCPCS: 36415; 70030; 71045; 73720; 80053; 82947; 85025; 85651; 86140; 87040; 93922; A9270; A9579; J1650; J1815; J2543; J7050

== ENCOUNTER 2020-10-09 00:26 | Day surgery (SDC) | payer BC, OTHER ==
[~2020-10-09 00:26] MED LIST changes: +AMLO5 PO; +AMOCLA875 PO; +SULTRISS PO; +VISBIOME 112.51 EACH PO
== END 2020-10-09 22:53 | disposition home or self-care (01) ==
LOC: WOUND 00:26
DX: E10.621 Type 1 diabetes mellitus with foot ulcer (principal); L97.529 Non-pressure chronic ulcer of other part of left foot with unspecified severity; L97.519 Non-pressure chronic ulcer of other part of right foot with unspecified severity; E10.59 Type 1 diabetes mellitus with other circulatory complications; E10.42 Type 1 diabetes mellitus with diabetic polyneuropathy; E10.65 Type 1 diabetes mellitus with hyperglycemia; E10.69 Type 1 diabetes mellitus with other specified complication; M86.171 Other acute osteomyelitis, right ankle and foot; I87.2 Venous insufficiency (chronic) (peripheral); Z79.4 Long term (current) use of insulin; Z87.891 Personal history of nicotine dependence
CPT/HCPCS: G0463

== ENCOUNTER 2021-04-29 21:29 | Emergency (ER) | payer BC ==
[~2021-04-29] VITALS: Ht 188 cm; Wt 99.8 kg
== END 2021-04-29 23:40 | disposition home or self-care (01) ==
LOC: ER 21:29
DX: I87.2 Venous insufficiency (chronic) (peripheral) (principal); L30.9 Dermatitis, unspecified; E10.42 Type 1 diabetes mellitus with diabetic polyneuropathy; E10.51 Type 1 diabetes mellitus with diabetic peripheral angiopathy without gangrene; I10 Essential (primary) hypertension; E10.621 Type 1 diabetes mellitus with foot ulcer; L97.509 Non-pressure chronic ulcer of other part of unspecified foot with unspecified severity; Z87.891 Personal history of nicotine dependence; Z88.1 Allergy status to other antibiotic agents; Z88.8 Allergy status to other drugs, medicaments and biological substances; Z79.899 Other long term (current) drug therapy
CPT/HCPCS: 93971; 99283-25; A9270

== ENCOUNTER → 2021-04-30 | Outpatient (CLI) | payer BC ==
[2021-04-30 15:39] LABS: BASOPHILS ABSOLUTE AUTO 0.02 K/mm3 (0.00-0.23); BASOPHILS PERCENT AUTO 0 % (0-2); EOSINOPHILS ABSOLUTE AUTO 0.07 K/mm3 (0.00-0.68); EOSINOPHILS PERCENT AUTO 1 % (0-6); Hematocrit 38.5 % (37.0-53.0); Hemoglobin 12.9 g/dL (13.5-17.5); IMMATURE GRAN ABSOLUTE AUTO 0.02 K/mm3 (0.00-0.10); IMMATURE GRAN PERCENT AUTO 0 % (0-1); LYMPHOCYTES PERCENT AUTO 13 % (21-46); MONOCYTES ABSOLUTE AUTO 0.62 K/mm3 (0.16-1.47); MONOCYTES PERCENT AUTO 7 % (4-13); Mean Corpuscular HGB 30.6 pg (26.0-34.0); Mean Corpuscular HGB Conc 33.5 g/dL (31.5-36.5); Mean Corpuscular Volume 91 fL (80-100); Mean Platelet Volume 10.3 fL (9.1-12.4); NEUTROPHILS ABSOLUTE AUTO 7.43 K/mm3 (1.96-9.15); NEUTROPHILS PERCENT AUTO 80 % (41-73); Platelet Count 282 K/mm3 (150-400); RDW Coefficient Variation 11.9 % (11.7-14.2); RDW Standard Deviation 39.8 fL (35.1-46.3); Red Blood Cell Count 4.21 M/mm3 (4.30-5.90); White Blood Cell Count 9.36 K/mm3 (4.00-11.30)
== END | disposition home or self-care (01) ==
LOC: LAB 15:34 → LAB SHORT 15:34
PROVIDERS: Family Medicine
DX: I87.8 Other specified disorders of veins (principal)
CPT/HCPCS: 85025

== ENCOUNTER → 2022-02-07 | Outpatient (CLI) | payer BC ==
[2022-02-07 09:34] LABS: BASOPHILS ABSOLUTE AUTO 0.04 K/mm3 (0.00-0.23); BASOPHILS PERCENT AUTO 0 % (0-2); EOSINOPHILS ABSOLUTE AUTO 0.17 K/mm3 (0.00-0.68); EOSINOPHILS PERCENT AUTO 2 % (0-6); Hematocrit 42.8 % (37.0-53.0); Hemoglobin 14.6 g/dL (13.5-17.5); IMMATURE GRAN ABSOLUTE AUTO 0.04 K/mm3 (0.00-0.10); IMMATURE GRAN PERCENT AUTO 0 % (0-1); LYMPHOCYTES ABSOLUTE AUTO 1.35 K/mm3 (0.84-5.20); LYMPHOCYTES PERCENT AUTO 15 % (21-46); MONOCYTES ABSOLUTE AUTO 0.61 K/mm3 (0.16-1.47); MONOCYTES PERCENT AUTO 7 % (4-13); Mean Corpuscular HGB 30.4 pg (26.0-34.0); Mean Corpuscular HGB Conc 34.1 g/dL (31.5-36.5); Mean Corpuscular Volume 89 fL (80-100); Mean Platelet Volume 10.1 fL (9.1-12.4); NEUTROPHILS ABSOLUTE AUTO 7.02 K/mm3 (1.96-9.15); NEUTROPHILS PERCENT AUTO 76 % (41-73); Platelet Count 357 K/mm3 (150-400); RDW Coefficient Variation 12.1 % (11.7-14.2); RDW Standard Deviation 39.7 fL (35.1-46.3); Red Blood Cell Count 4.81 M/mm3 (4.30-5.90); White Blood Cell Count 9.23 K/mm3 (4.00-11.30)
[2022-02-07 09:52] LABS: Albumin, Blood 2.9 g/dL (3.4-5.0); Albumin/Globulin Ratio 0.6 (0.8-1.8); Bilirubin, Total 0.4 mg/dL (0.1-1.0); Bun/Creatinine Ratio 18.6 (12.0-20.0); Calcium, Blood 8.7 mg/dL (8.5-10.1); Creatinine, Blood 1.02 mg/dL (0.60-1.20); Globulin, Blood 4.8 g/dL (2.2-4.0); Potassium, Blood 4.6 mmol/L (3.5-5.5); Total Protein, Blood 7.7 g/dL (6.4-8.2); Uric Acid, Blood 5.1 mg/dL (3.5-7.2)
== END | disposition home or self-care (01) ==
LOC: LAB 09:29 → LAB SHORT 09:29
PROVIDERS: General Practice
DX: M79.672 Pain in left foot (principal)
CPT/HCPCS: 80053; 84550; 85025; 85651; 86140

== ENCOUNTER → 2022-04-29 | Outpatient (CLI) | payer BC ==
[2022-04-29 16:06] LABS: Creatinine, Urine Random 51.2 mg/dL (27.00-270.00)
[2022-04-29 16:09] LABS: Microalb/Creat Ratio UR, Rand 1101.56 mg/g (0.000-30.000)
== END | disposition home or self-care (01) ==
LOC: LAB 12:30 → LAB SHORT 12:30
PROVIDERS: Internal Medicine Endocrinology, Diabetes & Metabolism
DX: E10.65 Type 1 diabetes mellitus with hyperglycemia (principal)
CPT/HCPCS: 82043; 82570

== ENCOUNTER → 2023-05-03 | Outpatient (CLI) | payer OTHER ==
[2023-05-03 13:43] LABS: BASOPHILS ABSOLUTE AUTO 0.03 K/mm3 (0.00-0.23); BASOPHILS PERCENT AUTO 1 % (0-2); EOSINOPHILS ABSOLUTE AUTO 0.18 K/mm3 (0.00-0.68); EOSINOPHILS PERCENT AUTO 4 % (0-6); Hematocrit 40.1 % (37.0-53.0); Hemoglobin 13.4 g/dL (13.5-17.5); IMMATURE GRAN ABSOLUTE AUTO 0.02 K/mm3 (0.00-0.10); IMMATURE GRAN PERCENT AUTO 0 % (0-1); LYMPHOCYTES ABSOLUTE AUTO 1.32 K/mm3 (0.84-5.20); LYMPHOCYTES PERCENT AUTO 27 % (21-46); MONOCYTES ABSOLUTE AUTO 0.45 K/mm3 (0.16-1.47); MONOCYTES PERCENT AUTO 9 % (4-13); Mean Corpuscular HGB 30.1 pg (26.0-34.0); Mean Corpuscular HGB Conc 33.4 g/dL (31.5-36.5); Mean Corpuscular Volume 90 fL (80-100); Mean Platelet Volume 9.4 fL (9.1-12.4); NEUTROPHILS ABSOLUTE AUTO 2.94 K/mm3 (1.96-9.15); NEUTROPHILS PERCENT AUTO 60 % (41-73); Platelet Count 319 K/mm3 (150-400); RDW Coefficient Variation 12.3 % (11.7-14.2); RDW Standard Deviation 40.2 fL (35.1-46.3); Red Blood Cell Count 4.45 M/mm3 (4.30-5.90); White Blood Cell Count 4.94 K/mm3 (4.00-11.30)
[2023-05-03 13:55] LABS: Albumin, Blood 3.6 g/dL (3.4-5.0); Albumin/Globulin Ratio 0.8 (0.8-1.8); Bilirubin, Total 0.3 mg/dL (0.1-1.0); Bun/Creatinine Ratio 15.2 (12.0-20.0); Creatinine, Blood 1.12 mg/dL (0.60-1.20); Globulin, Blood 4.5 g/dL (2.2-4.0); Total Protein, Blood 8.1 g/dL (6.4-8.2)
== END ==
LOC: LAB 13:39 → LAB SHORT 13:39
PROVIDERS: Emergency Medicine
DX: E10.9 Type 1 diabetes mellitus without complications (principal)
CPT/HCPCS: 80053; 85025; 85651; 86140